=== PATIENT | male | born 1950 | race African-American/Black ===

== ENCOUNTER 2016-12-21 12:49 | Emergency (ER) | payer MEDICARE ==
--- NOTE | 2016-12-21 14:17 | RAD ---
LEFT KNEE 4 VIEWS: Date: 12/21/16 HISTORY: Injury, left knee pain. FINDINGS/IMPRESSION: No acute fracture or dislocation is seen. POS: LINDY
[2016-12-21] MEDS ORDERED: Acetaminophen 325 MG TAB ONE (14:32)
== END 2016-12-21 15:29 | disposition home or self-care (01) ==
LOC: ERS 12:49
DX: S83.412A Sprain of medial collateral ligament of left knee, initial encounter (principal); S83.422A Sprain of lateral collateral ligament of left knee, initial encounter; I10 Essential (primary) hypertension; M19.90 Unspecified osteoarthritis, unspecified site; Z79.899 Other long term (current) drug therapy; W19.XXXA Unspecified fall, initial encounter

== ENCOUNTER 2017-01-02 10:37 | Emergency (ER) | payer MEDICARE | END 2017-01-02 12:30 | disposition home or self-care (01) | LOC: ERS 10:37 | DX: M25.562 Pain in left knee (principal); I10 Essential (primary) hypertension; Z79.899 Other long term (current) drug therapy; B20 Human immunodeficiency virus [HIV] disease; W19.XXXA Unspecified fall, initial encounter | CPT/HCPCS: 99283 ==

== ENCOUNTER 2017-01-12 07:00 | Emergency (ER) | payer MEDICARE ==
[2017-01-12] MEDS ORDERED: Ketorolac Tromethamine 30 MG/ML VIAL ONE (08:44)
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
--- NOTE | 2017-01-12 11:18 | RAD ---
2 VIEWS LUMBAR SPINE: Date: 01/12/17 COMPARISON: None. HISTORY: Left lower extremity radiculopathy/pain. FINDINGS: There is anterior osteophyte formation at the thoracolumbar junction and throughout the lumbar spine , mild/moderate in severity. There are lateral osteophytes noted at L1-2, left greater than right. V ertebral body height and alignment appears within normal limits. Pedicles appear intact on frontal i maging. There is bilateral facet hypertrophy at L4-5 and L5-S1. IMPRESSION: Degenerative disc disease with no acute osseous abnormality seen. POS: LINDY
== END 2017-01-12 10:17 | disposition home or self-care (01) ==
LOC: ERS 07:00
DX: M51.36 Other intervertebral disc degeneration, lumbar region (principal); M16.12 Unilateral primary osteoarthritis, left hip; B20 Human immunodeficiency virus [HIV] disease; I10 Essential (primary) hypertension; Z79.899 Other long term (current) drug therapy
CPT/HCPCS: 72100; 96372; J1885

== ENCOUNTER 2017-06-04 09:19 | Outpatient (CLI) | payer MEDICARE, OTHER ==
--- NOTE | 2017-06-04 10:22 | RAD ---
LUMBAR SPINE FOUR VIEWS: History: Low back pain. Patient fell. Pain goes down the left leg. Comparison: None. FINDINGS: Four views of the lumbar spine demonstrate five lumbar type vertebral bodies. Lumbar spine vertebral body height is maintained. No fracture. Disc space heights are preserved. Mild osteophyte changes at the lumbosacral junction. No spondylolisthesis in the neutral position. No abnormal motion with flexi on or extension. IMPRESSION: 1. No significant spondylolisthesis. 2. No significant loss of disc space height. 3. No fracture. POS: LINDY
== END 2017-06-04 09:20 | disposition home or self-care (01) ==
LOC: TBSIIMAG 09:19
PROVIDERS: ATTEND Surgery
DX: M54.5 Low back pain (principal)
CPT/HCPCS: 72110

== ENCOUNTER 2017-07-11 10:06 | Emergency (ER) | payer MEDICARE ==
[2017-07-11 10:50] LABS: PTT 29.2 SEC (22.9-36.1)
[2017-07-11 10:58] LABS: ALT (SGPT) 27 U/L (8-55); AST (SGOT) 28 U/L (5-34); Albumin 3.4 g/dL (3.4-4.8); Alkaline Phosphatase 66 U/L (40-150); Anion Gap 13 mmol/L (10-20); BUN (Urea Nitrogen) 16 mg/dL (8.4-25.7); Bilirubin, Total 0.4 mg/dL (0.2-1.2); Calc. Creatinine Clearance 0 mL/min (70-130); Calcium 9.1 mg/dL (7.8-10.44); Carbon Dioxide 23 mmol/L (23-31); Chloride 109 mmol/L (98-107); Estimated GFR-MDRD Greater than 90; Globulin 4.4 g/dL (2.4-3.5); Glucose 111 mg/dL (80-115); Potassium 3.8 mmol/L (3.5-5.1); Protein, Total 7.8 g/dL (5.8-8.1); Sodium 141 mmol/L (136-145)
[2017-07-11 11:06] LABS: D-Dimer Test 0.4 *mcg/mL (0.27-0.43)
[2017-07-11 11:08] LABS: #Basophils 0.2 thou/uL (0.0-0.2); #Eosinphils 0.2 thou/uL (0.0-0.7); #Lymphocytes 2.8 thou/uL (1.20-3.40); #Monocytes 0.7 thou/uL (0.11-0.59); #Neutrophils 3.7 thou/uL (1.40-6.50); %Basophils 2.1 % (0.0-1.0); %Eosinophils 2.3 % (0.0-10.0); %Monocytes 9.1 % (0.0-10.0); %Neutrophils 49.6 % (42.0-75.0); Hemoglobin 13.9 g/dL (14.0-18.0); Mean Corpuscular HGB CONC 33.2 g/dL (32.0-36.0); Mean Corpuscular Hemoglobin 27.5 pg (27.0-31.0); Mean Corpuscular Volume 82.8 fl (80.0-94.0); Mean Platelet Volume 7.4 fL (7.4-10.4); Platelet Count 195 thou/uL (130-400); RBC Distribution Width 13.2 % (11.5-14.5); Red Blood Cell (RBC) Count 5.05 mill/uL (4.70-6.10); White Blood Cell (WBC) Count 7.6 thou/uL (4.8-10.8)
== END 2017-07-11 11:23 | disposition home or self-care (01) ==
LOC: SCSER 10:06
DX: S76.912A Strain of unspecified muscles, fascia and tendons at thigh level, left thigh, initial encounter (principal); B20 Human immunodeficiency virus [HIV] disease; I10 Essential (primary) hypertension; X58.XXXA Exposure to other specified factors, initial encounter
CPT/HCPCS: 36415; 80053; 85025; 85379; 85730; 99283

== ENCOUNTER 2017-12-24 09:56 | Day surgery (SDC) | payer OTHER ==
[2017-12-23 16:18] VITALS: BMI 30.2
[2017-12-24 10:57] LABS: Hemoglobin 14.8 g/dL (14.0-18.0); Mean Corpuscular HGB CONC 32.9 g/dL (32.0-36.0); Mean Corpuscular Hemoglobin 27.6 pg (27.0-31.0); Platelet Count 254 thou/uL (130-400); RBC Distribution Width 13.4 % (11.5-14.5); Red Blood Cell (RBC) Count 5.37 mill/uL (4.70-6.10); White Blood Cell (WBC) Count 8.2 thou/uL (4.8-10.8)
[2017-12-24 11:01] LABS: INR-International Normal Ratio 0.9; Prothrombin Time 12.6 SEC (12.0-14.7)
[2017-12-24 11:02] LABS: PTT 29.7 SEC (22.9-36.1)
[2017-12-24 11:16] LABS: Anion Gap 12 mmol/L (10-20); BUN (Urea Nitrogen) 12 mg/dL (8.4-25.7); Calc. Creatinine Clearance 67 mL/min (70-130); Calcium 9.2 mg/dL (7.8-10.44); Carbon Dioxide 23 mmol/L (23-31); Chloride 109 mmol/L (98-107); Estimated GFR-MDRD 68; Glucose 104 mg/dL (80-115); Potassium 3.7 mmol/L (3.5-5.1); Sodium 140 mmol/L (136-145)
[2017-12-24] MEDS ORDERED: CEFAZOLIN/Water 2 GM/20 ML SYRINGE ONE (11:37)
[2017-12-24] MEDS ORDERED: Thrombin 5000 UNITS/5 ML VIAL ONE (12:57)
[2017-12-24] MEDS ORDERED: Bacitracin Zinc Ointment 30 gm TUBE ONE (12:57)
[2017-12-24] MEDS ORDERED: Sodium Chloride 0.9% 10 ML ONE (12:57)
[2017-12-24] MEDS ORDERED: Midazolam HCl 2 mg/2 ml Vial ONE ×2 (12:59→15:10)
[2017-12-24] MEDS ORDERED: Fentanyl 100 MCG/2 ML VIAL ONE ×3 (12:59→15:10)
[2017-12-24] MEDS ORDERED: Ondansetron HCl/PF 4 MG/2 ML Vial ONE (13:42)
[2017-12-24] MEDS ORDERED: PROPOFOL 200 MG/20 ML VIAL ONE (13:42)
[2017-12-24] MEDS ORDERED: Glycopyrrolate 0.2 MG/ML 5 ML SYRINGE ONE (13:42)
[2017-12-24] MEDS ORDERED: Metoclopramide HCl 10 MG/2 ML VIAL ONE (13:42)
[2017-12-24] MEDS ORDERED: Lidocaine 1% PF 5 ML VIAL ONE (13:42)
[2017-12-24] MEDS ORDERED: Dexamethasone 20 MG/5 ML VIAL ONE (13:42)
[2017-12-24] MEDS ORDERED: HYDROmorphone 2 MG/ML VIAL SLOW IVP PRN (14:32)
[2017-12-24] MEDS ORDERED: Morphine Sulfate 2 MG/ML SYRINGE SLOW IVP PRN (14:32)
[2017-12-24] MEDS ORDERED: Promethazine HCl 25 MG/ML VIAL IM PRN ×2 (14:32→15:41)
[2017-12-24] MEDS ORDERED: Ondansetron HCl/PF 4 MG/2 ML Vial IVP PRN (14:32)
[2017-12-24] MEDS ORDERED: Meperidine HCl/PF 25 MG/ML VIAL SLOW IVP PRN (14:32)
[2017-12-24] MEDS ORDERED: Promethazine HCl 25 MG/ML VIAL SLOW IVP PRN (14:32)
[2017-12-24] MEDS ORDERED: tiZANidine HCl 4 MG TAB PO PRN (15:41)
[2017-12-24] MEDS ORDERED: Milk Of Magnesia 30 ML UDCUP PO PRN (15:41)
[2017-12-24] MEDS ORDERED: Acetaminophen/Codeine 30-300mg Tablet PO PRN (15:41)
[2017-12-24] MEDS ORDERED: Bisacodyl 10 MG SUPP PR PRN (15:41)
[2017-12-24] MEDS ORDERED: Fleet Enema 133 ML BOT PR PRN (15:41)
[2017-12-24] MEDS ORDERED: Mag-Al 1200 mg/1200 mg/30 ML UDCUP PO PRN (15:41)
[2017-12-24] MEDS ORDERED: Acetaminophen 325 MG TAB PO PRN (15:41)
--- NOTE | 2017-12-24 15:41 | EKG ---
Test Reason : PREOP Blood Pressure : / mmHG Vent. Rate : 057 BPM Atrial Rate : 057 BPM P-R Int : 216 ms QRS Dur : 094 ms QT Int : 446 ms P-R-T Axes : 064 -10 013 degrees QTc Int : 434 ms Sinus bradycardia with 1st degree A-V block Otherwise normal ECG No previous ECGs available Confirmed by JAIDEN JACOBO, DR. Chin ([id number]) on 12/24/2017 3:41:13 PM Referred By: SAM Confirmed By:DR. Elsy HWANG MD
[2017-12-24] MEDS: Sodium Chloride 0.9% 1,000 ML IV SCH (17:51)
[2017-12-24] MEDS: HYDROcodone/Acetaminophen 7.5/325 mg Tablet PO PRN (17:51)
[2017-12-24] MEDS: CEFAZOLIN/Water 2 GM/20 ML SYRINGE SLOW IVP SCH (20:49)
[2017-12-25] MEDS: CEFAZOLIN/Water 2 GM/20 ML SYRINGE SLOW IVP SCH (04:11)
[2017-12-25] MEDS: Sodium Chloride 0.9% 1,000 ML IV SCH (04:11)
[2017-12-25] MEDS ORDERED: Losartan 25 MG TAB PO SCH (09:00)
[2017-12-25] MEDS ORDERED: Amlodipine 10 MG TAB PO SCH (09:00)
[2017-12-25] MEDS ORDERED: Albuterol Sulfate HFA (OR ONLY) ONE (10:15)
[2017-12-25 12:27] VITALS: BP 157/70; TEMP 97.5
[2017-12-25] MEDS: HYDROcodone/Acetaminophen 7.5/325 mg Tablet PO PRN (12:47)
--- NOTE | 2017-12-26 09:35 | OP ---
DATE OF PROCEDURE: 12/24/2017 SURGEON: Nicholas Medrano M.D. TOE SEWER: Tomasz Ríos PA-C. PREPROCEDURE DIAGNOSES: Left L4, left L5 radiculopathy with low back, left leg pain and left leg wea kness with disk extrusion. PROCEDURES PERFORMED: 1. Left L3-L4 hemilaminotomy, foraminotomy. 2. Left L4-L5 hemilaminotomy, foraminotomy, and diskectomy. 3. Left L4-L5 transfacet approach for diskectomy for decompression of the exiting left L4 root with foraminal diskectomy. 4. Use of operative microscope for microdissection. DESCRIPTION OF PROCEDURE: After informed consent was obtained from the patient, the patient was brou ght to OR. Proper patient pause and identification was carried out. He was placed in excellent gene ral endotracheal anesthesia and positioned prone on the OR table. All appropriate points were padded with the L3, L4, L5 segments. This region was sterilely cleansed, prepared, and draped. Proper pat ient pause and identification was carried out. The wound was then opened in combination of sharp, mo nopolar and blunt dissection. Left L3-L4 and left L4-L5 segments were exposed along with the left L4 -L5 facet complex and left L3-L4 facet complex to allow for a transfacet approach to the left. We th en exposed the L3, L4, L5 segments on the left side. Localization film confirmed our area of interes t. With the use of operative microscope, we performed a left L3-L4 hemilaminotomy, foraminotomy, but there is no need to perform a diskectomy at this level as the takeoff of the left L4 nerve root was adequately decompressed. We then followed into its foramen and did a transfacet left L4-L5 diskectom y for lateral and far lateral decompression in the exiting left L4 root. I also performed the parace ntral diskectomy to maximize decompression of the traversing left L5 nerve root. Copious irrigation occurred throughout as did maximizing hemostasis. The wound was then closed in anatomic layers follo wing the sprinkling of vancomycin powder. The patient then emerged from anesthesia. There was no CS F leak.
--- NOTE | 2017-12-26 12:21 | DIS ---
DATE OF ADMISSION: 12/24/2017 DATE OF DISCHARGE: 12/25/2017 Tomasz Ríos PA-C, dictating for Dr. Nicholas Medrano. DISCHARGE DIAGNOSES: 1. Lumbar spinal stenosis. 2. Lumbar herniated disk. 3. Lumbar radiculopathy. HOSPITAL COURSE: Mr. Perez was admitted to undergo a left L4-L5 and left L5-S1 hemilaminotomy and di skectomy for a large herniated disk. Surgery was without complication and required 1 overnight stay for recovery. At the time of discharge, the patient had significant improvement in his left lower ex tremity symptoms and some incisional back pain, but otherwise is doing well. He met criteria for dis charge for appropriate patient education and outpatient followups were provided. At the time of disc harge, the patient was pleased with his outcome postoperatively and is to call the office with questi ons or concerns in the meantime.
== END 2017-12-25 13:57 | disposition home or self-care (01) ==
LOC: SDC 09:56 → SURG A 16:22 → SDC 12-25 13:57
PROVIDERS: ATTEND Surgery
PROC: 0SB20ZZ Excision of Lumbar Vertebral Disc, Open Approach (ICD-10-PCS; principal; 2017-12-24)
PROC: 0ST20ZZ Resection of Lumbar Vertebral Disc, Open Approach (ICD-10-PCS; principal; 2017-12-24)
PROC: 01NB0ZZ Release Lumbar Nerve, Open Approach (ICD-10-PCS; principal; 2017-12-24)
DX: M51.16 Intervertebral disc disorders with radiculopathy, lumbar region (principal); M48.061 Spinal stenosis, lumbar region without neurogenic claudication
CPT/HCPCS: 76001; 80048; 85027; 85610; 85730; 93005; 93010; A4216; G8978-GP-CJ; G8979-GP-CJ; G8980-GP-CJ; J1100; J2001; J2250; J2405; J2704; J2765; J3010; J3370; J3490

== ENCOUNTER 2021-10-07 15:32 | Emergency (ER) | payer MEDICARE ==
[2021-10-07] MEDS ORDERED: Ketorolac Tromethamine 30 MG/ML VIAL ONE (16:25)
[2021-10-07] MEDS ORDERED: Cyclobenzaprine 10 MG TAB ONE (16:25)
== END 2021-10-07 16:52 | disposition home or self-care (01) ==
LOC: ERS 15:32
DX: S39.012A Strain of muscle, fascia and tendon of lower back, initial encounter (principal); I10 Essential (primary) hypertension; X50.0XXA Overexertion from strenuous movement or load, initial encounter
CPT/HCPCS: 72100; 96372; J1885

== ENCOUNTER 2022-06-08 08:43 | Emergency (ER) | payer OTHER, MEDICARE ==
[2022-06-08 10:23] LABS: #Eosinphils 0.2 thou/uL (0.0-0.7); #Lymphocytes 3.2 thou/uL (1.20-3.40); #Monocytes 0.6 thou/uL (0.11-0.59); #Neutrophils 3.8 thou/uL (1.40-6.50); %Basophils 0.6 % (0.0-1.0); %Eosinophils 3.2 % (0.0-10.0); %Lymphocytes 40.4 % (21.0-51.0); %Monocytes 7.3 % (0.0-10.0); %Neutrophils 48.5 % (42.0-75.0); Hemoglobin 15.3 g/dL (14.0-18.0); Mean Corpuscular Hemoglobin 27.6 pg (27.0-31.0); Mean Corpuscular Volume 86.4 fl (78.0-98.0); Mean Platelet Volume 8.4 fL (7.4-10.4); Platelet Count 201 10x3/uL (130-400); RBC Distribution Width 12.9 % (11.5-14.5); Red Blood Cell (RBC) Count 5.55 mill/uL (4.70-6.10); White Blood Cell (WBC) Count 7.9 10x3/uL (4.8-10.8)
[2022-06-08 10:43] LABS: ALT (SGPT) 14 U/L (8-55); AST (SGOT) 20 U/L (5-34); Albumin 4.2 g/dL (3.4-4.8); Alkaline Phosphatase 77 U/L (40-110); Anion Gap 11 mmol/L (10-20); BUN (Urea Nitrogen) 14 mg/dL (8.4-25.7); Bilirubin, Total 0.6 mg/dL (0.2-1.2); Calc. Creatinine Clearance 0 mL/min (70-130); Calcium 9.3 mg/dL (7.8-10.44); Carbon Dioxide 25 mmol/L (23-31); Chloride 108 mmol/L (98-107); Estimated GFR 61; Globulin 3.4 g/dL (2.4-3.5); Glucose 104 mg/dL (83-110); Potassium 4.1 mmol/L (3.5-5.1); Protein, Total 7.6 g/dL (5.8-8.1); Sodium 140 mmol/L (136-145)
[2022-06-08] MEDS ORDERED: ISOVUE-370 76%-LOCM 1 ML ONE (14:49)
== END 2022-06-08 12:30 | disposition home or self-care (01) ==
LOC: ERS 08:43
DX: S16.1XXA Strain of muscle, fascia and tendon at neck level, initial encounter (principal); M54.50 Low back pain, unspecified; I10 Essential (primary) hypertension; Z79.899 Other long term (current) drug therapy; V49.40XA Driver injured in collision with unspecified motor vehicles in traffic accident, initial encounter; Y92.410 Unspecified street and highway as the place of occurrence of the external cause
CPT/HCPCS: 36415; 70450; 71260; 72125; 74177; 80053; 85025

== ENCOUNTER 2022-12-11 16:16 | Emergency (ER) | payer MEDICARE | END 2022-12-11 17:06 | disposition left against medical advice (07) | LOC: ERS 16:16 | DX: Z53.21 Procedure and treatment not carried out due to patient leaving prior to being seen by health care provider (principal) ==

== ENCOUNTER 2022-12-12 08:46 | Emergency (ER) | payer OTHER, MEDICARE ==
[2022-12-12] MEDS ORDERED: Ketorolac Tromethamine 30 MG/ML VIAL ONE (09:40)
== END 2022-12-12 11:35 | disposition home or self-care (01) ==
LOC: ERS 08:46
DX: M25.511 Pain in right shoulder (principal); M25.562 Pain in left knee; R07.89 Other chest pain; I10 Essential (primary) hypertension; V89.0XXA Person injured in unspecified motor-vehicle accident, nontraffic, initial encounter
CPT/HCPCS: 71046; 93005; 96372; J1885

== ENCOUNTER 2022-12-13 10:24 | Emergency (ER) | payer OTHER, MEDICARE ==
[2022-12-13] MEDS ORDERED: Ibuprofen 200 MG TAB ONE (10:52)
== END 2022-12-13 11:44 | disposition home or self-care (01) ==
LOC: ERS 10:24
DX: S46.011A Strain of muscle(s) and tendon(s) of the rotator cuff of right shoulder, initial encounter (principal); I10 Essential (primary) hypertension; V89.2XXA Person injured in unspecified motor-vehicle accident, traffic, initial encounter

== ENCOUNTER 2024-04-03 07:16 | Emergency (ER) | payer MEDICARE, OTHER | END 2024-04-03 08:32 | disposition home or self-care (01) | LOC: ERS 07:16 | DX: S80.02XA Contusion of left knee, initial encounter (principal); S20.211A Contusion of right front wall of thorax, initial encounter; I10 Essential (primary) hypertension; V89.2XXA Person injured in unspecified motor-vehicle accident, traffic, initial encounter; Y93.89 Activity, other specified | CPT/HCPCS: 71046 ==